=== PATIENT | female | born 1930 | race Caucasian/White ===

== ENCOUNTER 2016-02-25 13:31 | Emergency (ER) | payer MEDICARE, OTHER, MEDICAID ==
--- NOTE | 2016-02-25 14:10 | Emergency Department Record ---
History of Present Illness - General Chief Complaint: Fall Injury Stated Complaint: FALL INJURY Time Seen by Provider: 02/25/16 14:09 Source: Patient, Family, EMS Mode of Arrival: EMS Limitations: No limitations - History of Present Illness Initial Comments: The patient is here from [facility] due to being found with a minor abrasion to her R forehead. She is a dementia patient in the memory unit at [facility] and there was no witnessed fall or injury. Due to the POSSIBLE fall [facility] called EMS to take the patient to the ER. The patient denies any pain or discomfort and denies any knowledge of falling. There has not been any recent illnesses per family. She does have a hx of falling per her daughter. 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 Fall Witnessed: No Place [facility] Occ[facility] Loss of Consciousness: None Prolonged Down Time?: No Symptoms Prior to Fall: None Location: Head - Haylee Coma Scale Eye Response: (4) Open spontaneously Verbal Response: (1) No verbal response - Related Data Home Medications Medication Instructions Recorded Confirmed Last Taken Sertraline HCl [Sertraline HCl] 25 mg PO DAILY 02/25/16 02/25/16 02/25/16 Previous Rx's Medication Instructions Recorded Amoxicillin/Potassium Clav 1 tab PO BID #20 tab 02/25/16 [Augmentin 875-125 Tablet] Allergies Allergy/AdvReac Type Severity Reaction Status Date / Time No Known Drug Allergies Allergy Verified 02/25/16 14:07 Travel Screening - Travel/Exposure Within Last 30 Days Have you traveled within the last 30 days?: No - Travel/Exposure Within Last Year Have you traveled outside the [place] in the last year?: No - Additonal Travel Details Have you been exposed to anyone with a communicable illness?: No - Travel Symptoms Symptom Screening: None Review of Systems Constitutional: Denies: Chills, Fever Eyes: Denies: Eye discharge ENT: Denies: Congestion Respiratory: Denies: Cough, Dyspnea Past Medical History - SOCIAL HISTORY Smoking Status: Never smoker Alcohol Use: None Drug Use: None - RESPIRATORY Hx Respiratory Disorders: No - CARDIOVASCULAR Hx Cardio Disorders: No - NEURO Hx Neuro Disorders: No - GI Hx GI Disorders: No - Hx Genitourinary Disorders: No - ENDOCRINE Hx Endocrine Disorders: No Hx Diabetes: No Hx Thyroid Disease: No - MUSCULOSKELETAL Hx Musculoskeletal Disorders: No - PSYCH Comment:: dementia - HEMATOLOGY/ONCOLOGY Hx Hematology/Oncology Disorders: No Family Medical History Any Significant Family History?: Yes Hx Alcohol Use: Father Hx Cancer: Mother Hx Heart Disease: Brother/Sister Hx Kidney Disease: Brother/Sister Hx Liver Disease: Brother/Sister Physical Exam - General General Appearance: Alert, Cooperative, No acute distress - Head Head exam: Normocephalic. negative: Atraumatic (There is a nontender very minor abrasion to the R forehead area. It is nontender.) Head exam detail: Abrasion - Eye Eye exam: Normal appearance, PERRL - Neck Neck exam: Normal inspection, Full ROM. negative: Meningismus, Tenderness ( There is normal ROM with no pain.) - Respiratory Respiratory exam: Normal lung sounds bilaterally. negative: Respiratory distress - Cardiovascular Cardiovascular Exam: Regular rate, Normal rhythm, Normal heart sounds - GI/Abdominal GI/Abdominal exam: Soft, Normal bowel sounds. negative: Tenderness - Neurological Neurological exam: Alert, Normal gait (The patient is up walking with her normal gait per her daughter.). negative: Abnormal gait, Altered, Motor sensory deficit, Oriented X3 - Psychiatric Psychiatric exam: negative: Agitated, Anxious, Depressed Course Vital Signs 02/25/16 13:40 Temperature 97.8 F Pulse Rate [ 85 Pulse Ox Probe] Respiratory 16 Rate Blood Pressure 142/88 [Left Arm] Pulse Ox 97 - Reevaluation(s) Reevaluation #1: I did discuss the CT results with the patient's family. The patient is resting comfortably with no complaints. 02/25/16 15:08 Medical Decision Making - Data Complexity MDM Data: X-Ray Ordered and/or Reviewed - Radiology Data Radiology results: Report reviewed (Head CT: Neg for any acute changes. L max sinusitis.) Disposition Disposition: Discharge Clinical Impression: Acute sinusitis Qualifiers: Sinusitis location: maxillary Recurrence: not specified as recurrent Qualified Code(s): J01.00 - Acute maxillary sinusitis, unspecified Disposition: Home, Self-Care Condition: (1) Good Instructions: Sinusitis (ED) Additional Instructions: Please continue your regular medicines. Take the Augmentin as directed. Please see your PCP if not better in 3 days. Return to the ER if worse. Prescriptions: Amoxicillin/Potassium Clav [Augmentin 875-125 Tablet] 1 tab PO BID #20 tab Forms: Patient Portal Access Time of Disposition: 15:10
--- NOTE | 2016-02-29 10:49 | CT SCAN REPORT ---
EXAM: CT OF THE BRAIN WITHOUT CONTRAST HISTORY: POSSIBLE FALL. TECHNIQUE: CT of the brain without contrast was obtained. Comparison: None. Encounter: Initial. FINDINGS: The globes are intact. There is complete opacification of the left maxillary sinus. There is no displaced or depressed skull fracture. There is no intra or extraaxial hemorrhage. CT is limited for the evaluation of acute infarct. No CT evidence for large or territorial acute infarct. Age appropriate atrophy with small vessel ischemic change. IMPRESSION: ATROPHY. SMALL VESSEL ISCHEMIC CHANGE. LEFT MAXILLARY SINUSITIS. JOB NUMBER: [id number] MTDD
== END 2016-02-25 15:18 ==
LOC: ER 13:31
DX: S00.81XA Abrasion of other part of head, initial encounter (principal); J01.00 Acute maxillary sinusitis, unspecified; F03.90 Unspecified dementia, unspecified severity, without behavioral disturbance, psychotic disturbance, mood disturbance, and anxiety; X58.XXXA Exposure to other specified factors, initial encounter; Y92.129 Unspecified place in nursing home as the place of occurrence of the external cause
CPT/HCPCS: 70450; 99283

== ENCOUNTER 2016-06-17 12:09 | Emergency (ER) | payer MEDICARE, OTHER, MEDICAID ==
--- NOTE | 2016-06-17 12:23 | Emergency Department Record ---
History of Present Illness - General Chief Complaint: Fall Injury Stated Complaint: FALL Time Seen by Provider: 06/17/16 12:18 Source: Patient, Family, EMS Mode of Arrival: Ambulatory Limitations: No limitations - History of Present Illness Initial Comments: 86 yo female presents from [facility] after a witnessed fall. No LOC. No mental status changes. She hit the back of her head. No headache. Her daughter is present and states she is at her baseline. She has some dementia with memory issues. No new extremity pain. No other recent illness per the daughter. MD Complaint: Fall -: Minutes(s) Fall From: Standing When Fall Occurred: Just prior to arrival Fall Witnessed: Yes, by living facility staff Place Fall Occurred: alf/SNF Loss of Consciousness: None Prolonged Down Time?: No Symptoms Prior to Fall: None Location: Head Quality: Aching (very mild) Associated Symptoms: Denies - Haylee Coma Scale Eye Response: (4) Open spontaneously Motor Response: (6) Obeys commands Verbal Response: (5) Oriented Haylee Total: 15 - Related Data Home Medications Medication Instructions Recorded Confirmed Last Taken Sertraline HCl [Sertraline HCl] 25 mg PO DAILY 02/25/16 06/17/16 06/17/16 Acetaminophen [Mapap] 1 tab PO TID 06/17/16 06/17/16 06/08/16 Ergocalciferol (Vitamin D2) 50,000 unit PO WEEKLY 06/17/16 06/17/16 06/09/16 [Vitamin D2] Melatonin 5 mg PO QHS 06/17/16 06/17/16 Unknown Allergies Allergy/AdvReac Type Severity Reaction Status Date / Time No Known Drug Allergies Allergy Verified 02/25/16 14:07 Review of Systems Constitutional: Denies: Chills, Fever, Malaise, Weakness Eyes: Denies: Eye discharge, Eye pain, Photophobia, Vision change ENT: Denies: Congestion, Throat pain Respiratory: Denies: Cough, Dyspnea, Wheezes Cardiovascular: Denies: Chest pain, Palpitations, Syncope Endocrine: Denies: Fatigue Gastrointestinal: Denies: Abdominal pain, Diarrhea, Nausea, Vomiting Genitourinary: Denies: Dysuria, Frequency, Urgency Musculoskeletal: Denies: Arthralgia, Back pain, Joint swelling, Myalgia, Neck pain Skin: Denies: Bruising, Change in color Neurological: Reports: Confusion (at baseline). Denies: Headache, Numbness, Vertigo, Weakness Psychiatric: Denies: Anxiety Hematological/Lymphatic: Denies: Blood Clots, Easy bleeding, Easy bruising, Swollen glands Past Medical History - SOCIAL HISTORY Smoking Status: Never smoker Drug Use: None - RESPIRATORY Hx Respiratory Disorders: No - CARDIOVASCULAR Hx Cardio Disorders: No - NEURO Hx Neuro Disorders: No - GI Hx GI Disorders: No - Hx Genitourinary Disorders: No - ENDOCRINE Hx Endocrine Disorders: No Hx Diabetes: No Hx Thyroid Disease: No - MUSCULOSKELETAL Hx Musculoskeletal Disorders: No - PSYCH Comment:: dementia - HEMATOLOGY/ONCOLOGY Hx Hematology/Oncology Disorders: No Family Medical History Hx Alcohol Use: Father Hx Cancer: Mother Hx Heart Disease: Brother/Sister Hx Kidney Disease: Brother/Sister Hx Liver Disease: Brother/Sister Physical Exam - General General Appearance: Alert, Cooperative, No acute distress, Other (Oriented to person and hospital, at baseline) - Head Head exam: negative: Atraumatic Head exam detail: Contusion (posterior scalp mild swelling) - Eye Eye exam: Normal appearance, PERRL. negative: Conjunctival injection, Periorbital swelling - ENT ENT exam: Normal exam, Mucous membranes moist, Normal orophraynx Ear exam: Normal external inspection. negative: External canal tenderness Nasal Exam: Normal inspection. negative: Discharge, Sinus tenderness Mouth exam: Normal external inspection, Tongue normal Teeth exam: Normal inspection. negative: Dental caries Throat exam: Normal inspection. negative: Tonsillar erythema, Tonsillar exudate - Neck Neck exam: Normal inspection, Full ROM. negative: Tenderness - Respiratory Respiratory exam: Normal lung sounds bilaterally. negative: Accessory muscle use, Chest wall tenderness, Decreased breath sounds, Respiratory distress - Cardiovascular Cardiovascular Exam: Regular rate, Normal rhythm, Normal heart sounds - GI/Abdominal GI/Abdominal exam: Soft. negative: Tenderness - Rectal Rectal exam: Deferred - exam: Deferred - Extremities Extremities exam: Normal inspection, Full ROM, Normal capillary refill, Other ( Full ROM of the joints). negative: Calf tenderness, Joint swelling, Pedal edema , Tenderness - Back Back exam: Reports: Normal inspection, Full ROM. Denies: CVA tenderness (R), CVA tenderness (L), Muscle spasm, Paraspinal tenderness, Rash noted, Tenderness , Vertebral tenderness - Neurological Neurological exam: Alert, Normal gait, Oriented X3. negative: Altered - Psychiatric Psychiatric exam: Normal affect, Normal mood. negative: Agitated, Anxious - Skin Skin exam: Dry, Intact, Normal color, Warm. negative: Cyanosis, Diaphoretic, Erythema Course - Reevaluation(s) Reevaluation #1: The patient was seen and examined She is at baseline but hit the back of her head. CT ordered of head and neck 06/17/16 12:22 Reevaluation #2: No acute abnormality on the HCT or the Cervical spine CT. She has residual sinusitis UA sent. Trace LE and small amount of bacteria Given the tow above findings of sinusitis and UA she will be placed on antibiotics 06/17/16 13:25 06/17/16 13:39 06/17/16 13:42 Disposition Disposition: Discharge Clinical Impression: Head contusion Qualifiers: Encounter type: initial encounter Laterality: unspecified laterality Fall Qualifiers: Encounter type: initial encounter Qualified Code(s): W19.XXXA - Unspecified fall, initial encounter Sinusitis Qualifiers: Sinusitis location: unspecified location Chronicity: acute Recurrence: non- recurrent Qualified Code(s): J01.90 - Acute sinusitis, unspecified Urinary Tract Infection Qualifiers: Urinary tract infection type: site unspecified Hematuria presence: without hematuria Qualified Code(s): N39.0 - Urinary tract infection, site not specified Condition: (2) Stable Instructions: Fall Prevention for Older Adults (ED) Additional Instructions: Follow up with your doctor this week for a recheck Return if you have any new symptoms, pain, concerns Take the Keflex 3 times daily for one week Forms: Patient Portal Access
[2016-06-17 13:29] LABS: URINE APPEARANCE CLEAR; URINE BILIRUBIN NEGATIVE (NEGATIVE); URINE BLOOD NEGATIVE (NEGATIVE); URINE COLOR YELLOW; URINE GLUCOSE (UA) NEGATIVE (NEGATIVE); URINE KETONE NEGATIVE (NEGATIVE); URINE LEUKOCYTE ESTERASE TRACE (NEGATIVE); URINE NITRITE NEGATIVE (NEGATIVE); URINE PROTEIN NEGATIVE (NEGATIVE); URINE UROBILINOGEN 0.2 E.U./dL (0.20 - 1.00)
[2016-06-17 13:41] LABS: URINE BACTERIA FEW; URINE EPITHELIAL CELLS 0 - 2 (FEW); URINE RBC NONE SEEN (NONE SEEN); URINE WBC 0 - 2 (0-2/hpf)
[2016-06-17] MEDS: CEPHALEXIN 500 MG CAPSULE PO STA (14:11)
== END 2016-06-17 14:15 | disposition home or self-care (01) ==
LOC: ER 12:09
DX: S00.03XA Contusion of scalp, initial encounter (principal); R51 Headache; J01.90 Acute sinusitis, unspecified; N39.0 Urinary tract infection, site not specified; M79.642 Pain in left hand; F03.90 Unspecified dementia, unspecified severity, without behavioral disturbance, psychotic disturbance, mood disturbance, and anxiety; W01.198A Fall on same level from slipping, tripping and stumbling with subsequent striking against other object, initial encounter; Y92.129 Unspecified place in nursing home as the place of occurrence of the external cause
CPT/HCPCS: 70450; 72125; 81001; 99283; 99284

== ENCOUNTER 2016-10-26 08:48 | Emergency (ER) | payer MEDICARE, MEDICAID ==
--- NOTE | 2016-10-26 09:19 | Emergency Department Record ---
History of Present Illness - General Chief Complaint: Fall Injury Stated Complaint: FALL Time Seen by Provider: 10/26/16 09:00 Source: Patient, Family Mode of Arrival: EMS Limitations: No limitations - History of Present Illness Initial Comments: The patient is here due to falling at [facility] and possibly hitting her head. She fell trying to get into a chair and possibly fell backwards. The patient had no LOC and possibly hit her head. She did get up and sit back in the chair after and finish her breakfast. The patient presently denies any problems or pain. MD Complaint: Fall Onset/Timin -: Minutes(s) Fall From: Chair When Fall Occurred: Just prior to arrival Fall Witnessed: Yes, by bystander, Yes, by living facility staff Place Fall Occurred: [facility]NF Loss of Consciousness: None Prolonged Down Time?: No Symptoms Prior to Fall: None Location: Head, Neck Severity: Mild Severity scale (1-10): 2 Quality: Aching Associated Symptoms: Denies - Haylee Coma Scale Eye Response: (4) Open spontaneously Motor Response: (6) Obeys commands Verbal Response: (4) Confused conversation Schuyler Total: 14 - Related Data Allergies Allergy/AdvReac Type Severity Reaction Status Date / Time No Known Drug Allergies Allergy Verified 10/26/16 09:25 Travel Screening - Travel/Exposure Within Last 30 Days Have you traveled within the last 30 days?: No - Travel/Exposure Within Last Year Have you traveled outside the [place] in the last year?: No - Additonal Travel Details Have you been exposed to anyone with a communicable illness?: No - Travel Symptoms Symptom Screening: None Review of Systems Constitutional: Denies: Chills, Fever ENT: Denies: Congestion Respiratory: Denies: Cough Cardiovascular: Denies: Arrhythmia, Chest pain, Palpitations Past Medical History - SOCIAL HISTORY Smoking Status: Never smoker Alcohol Use: None Drug Use: None - RESPIRATORY Hx Respiratory Disorders: No - CARDIOVASCULAR Hx Cardio Disorders: No - NEURO Hx Neuro Disorders: No - GI Hx GI Disorders: No - Hx Genitourinary Disorders: No - ENDOCRINE Hx Endocrine Disorders: No Hx Diabetes: No Hx Thyroid Disease: No - MUSCULOSKELETAL Hx Musculoskeletal Disorders: No - PSYCH Comment:: dementia - HEMATOLOGY/ONCOLOGY Hx Hematology/Oncology Disorders: No Family Medical History Any Significant Family History?: Yes Hx Alcohol Use: Father Hx Cancer: Mother Hx Heart Disease: Brother/Sister Hx Kidney Disease: Brother/Sister Hx Liver Disease: Brother/Sister Physical Exam - General General Appearance: Alert, Cooperative, No acute distress - Head Head exam: Atraumatic, Normocephalic, Normal inspection (There are no signs of any trauma.) - Eye Eye exam: Normal appearance - Neck Neck exam: Normal inspection, Full ROM. negative: Tenderness - Respiratory Respiratory exam: Normal lung sounds bilaterally. negative: Respiratory distress - Cardiovascular Cardiovascular Exam: Regular rate, Normal rhythm, Normal heart sounds - GI/Abdominal GI/Abdominal exam: Soft, Normal bowel sounds. negative: Tenderness - Neurological Neurological exam: Alert, Normal gait. negative: Abnormal gait, Motor sensory deficit, Oriented X3 (The patient is oriented to name only which is normal for her due to her Dementia.) Course Vital Signs 10/26/16 08:54 Temperature 98.3 F Pulse Rate 81 Respiratory 18 Rate Blood Pressure 147/103 Pulse Ox 98 - Reevaluation(s) Reevaluation #1: The patient is doing well and is up ambulating normally. I did discuss the CT results with the patient. The head CT does demonstrate L max. sinus opacification which was present on the CT in Feb of this year. She did receive a course of Abx's for it. Since the patient is asymptomatic I do not think another course of Abx's will improved anything. The patient is to see her PCP for further evaluation. 10/26/16 10:21 10/26/16 11:06 Medical Decision Making - Data Complexity MDM Data: X-Ray Ordered and/or Reviewed - Radiology Data Radiology results: Report reviewed (Head CT: Neg intracranial abnormality. L max sinus opacified. C Spine: No acute changes.) Disposition Disposition: Discharge Clinical Impression: Fall Qualifiers: Encounter type: initial encounter Qualified Code(s): W19.XXXA - Unspecified fall, initial encounter Disposition: Home, Self-Care Condition: (1) Good Instructions: Fall Prevention for Older Adults (ED) Additional Instructions: Please continue your regular medicines. Please see your PCP next week for recheck. Return to the ER if worse. Forms: Patient Portal Access Time of Disposition: 10:23 Quality - Quality Measures Quality Measures: N/A - Blood Pressure Screening View Details: Yes Does Patient Have Any of the Following: No Blood Pressure Classification: Hypertensive Reading Systolic Measurement: 147 Diastolic Measurement: 103 Screening for High Blood Pressure: < Pre-Hypertensive BP, F/U Documented > [ [id number]] Pre-Hypertensive Follow-up Interventions: Referral to alternative/primary care provider.
--- NOTE | 2016-10-27 08:12 | CT SCAN REPORT ---
EXAM: CT SCAN HEAD WO CONTRAST HISTORY: FALL. TECHNIQUE: Sequential axial images were obtained from the foramen magnum to the vertex without contrast administration. FINDINGS: There is age-appropriate cortical atrophy. There is mild periventricular small vessel ischemia. No large territorial infarct, hemorrhage , mass effect, or midline shift. No extra-axial fluid collection. The orbits appear normal. There is complete opacification of the left maxillary sinus. The mandibular condyles are intact. No depressed skull fracture. IMPRESSION: 1. NO ACUTE INTRACRANIAL ABNORMALITY IS APPRECIATED. 2. COMPLETE OPACIFICATION OF THE LEFT MAXILLARY SINUS. 3. AGE-APPROPRIATE ATROPHY WITH PERIVENTRICULAR SMALL VESSEL ISCHEMIA. JOB NUMBER: [id number] MTDD
--- NOTE | 2016-10-27 08:14 | CT SCAN REPORT ---
EXAM: CT SCAN CERVICAL SPINE WO CONTRAST HISTORY: FALL. TECHNIQUE: Sequential axial images were obtained through the cervical spine without intravenous contrast administration. Sagittal and coronal reformatted images were performed. FINDINGS: There is mild osteopenia. There is no evidence of fracture, subluxation, or perched facet. There is mild degenerative change at C5-6. Lateral masses are well-aligned. The visualized lung apices are normal. IMPRESSION: 1. OSTEOPENIA. NO EVIDENCE OF FRACTURE, SUBLUXATION, OR PERCHED FACET. 2. MILD DEGENERATIVE CHANGE AT C5-6. JOB NUMBER: [id number] MTDD
== END 2016-10-26 10:37 | disposition home or self-care (01) ==
LOC: ER 08:48
DX: Z04.3 Encounter for examination and observation following other accident (principal); M47.892 Other spondylosis, cervical region; F03.90 Unspecified dementia, unspecified severity, without behavioral disturbance, psychotic disturbance, mood disturbance, and anxiety; W07.XXXA Fall from chair, initial encounter; Y92.10 Unspecified residential institution as the place of occurrence of the external cause
CPT/HCPCS: 70450; 72125; 99283; 99284

== ENCOUNTER 2016-10-29 08:02 | Emergency (ER) | payer MEDICARE, MEDICAID ==
--- NOTE | 2016-10-29 09:36 | Emergency Department Record ---
History of Present Illness - General Chief Complaint: Fall Injury Stated Complaint: FALL Time Seen by Provider: 10/29/16 08:17 Source: Patient, Family Mode of Arrival: Stretcher Limitations: No limitations - History of Present Illness Initial Comments: pt fell backwards hitting her head hard. this is the 3rd time she has fallen this week. she c/o head, neck pain, back pain. she had no loc and she has no numbness MD Complaint: Fall Onset/Timin -: Hour(s) Fall From: Standing When Fall Occurred: Just prior to arrival Fall Witnessed: Yes, by living facility staff Place Fall Occurred: Home Loss of Consciousness: None Prolonged Down Time?: No Symptoms Prior to Fall: None Location: Head, Neck, Back Quality: Aching Associated Symptoms: Denies - [place] Coma Scale Eye Response: (4) Open spontaneously Motor Response: (6) Obeys commands Verbal Response: (4) Confused conversation Haylee Total: 14 - Related Data Allergies Allergy/AdvReac Type Severity Reaction Status Date / Time No Known Drug Allergies Allergy Verified 10/26/16 09:25 Travel Screening - Travel/Exposure Within Last 30 Days Have you traveled within the last 30 days?: No - Travel/Exposure Within Last Year Have you traveled outside the [place] in the last year?: No - Additonal Travel Details Have you been exposed to anyone with a communicable illness?: No - Travel Symptoms Symptom Screening: None Review of Systems Reviewed: No additional complaints except as noted below Constitutional: Reports: As per HPI. Denies: Chills, Fever, Malaise, Night sweats, Weakness, Weight change Eyes: Reports: As per HPI. Denies: Eye discharge, Eye pain, Photophobia, Vision change ENT: Reports: As per HPI. Denies: Congestion, Dental pain, Ear pain, Epistaxis , Hearing loss, Throat pain Respiratory: Reports: As per HPI. Denies: Cough, Dyspnea, Hemoptysis, Stridor, Wheezes Cardiovascular: Reports: As per HPI. Denies: Arrhythmia, Chest pain, Dyspnea on exertion, Edema, Murmurs, Orthopnea, Palpitations, Paroxysmal nocturnal dyspnea, Rheumatic Fever, Syncope Endocrine: Reports: As per HPI. Denies: Fatigue, Heat or cold intolerance, Polydipsia, Polyuria Gastrointestinal: Reports: As per HPI. Denies: Abdominal pain, Constipation, Diarrhea, Hematemesis, Hematochezia, Melena, Nausea, Vomiting Genitourinary: Reports: As per HPI. Denies: Abnormal menses, Discharge, Dyspareunia, Dysuria, Frequency, Hematuria, Incontinence, Retention, Urgency Musculoskeletal: Reports: As per HPI. Denies: Arthralgia, Back pain, Gout, Joint swelling, Myalgia, Neck pain Skin: Reports: As per HPI. Denies: Bruising, Change in color, Change in hair/ nails, Lesions, Pruritus, Rash Neurological: Reports: As per HPI. Denies: Abnormal gait, Confusion, Headache, Numbness, Paresthesias, Seizure, Tingling, Tremors, Vertigo, Weakness Psychiatric: Reports: As per HPI. Denies: Anxiety, Auditory hallucinations, Depression, Homicidal thoughts, Suicidal thoughts, Visual hallucinations Hematological/Lymphatic: Reports: As per HPI. Denies: Anemia, Blood Clots, Easy bleeding, Easy bruising, Swollen glands Past Medical History - SOCIAL HISTORY Smoking Status: Never smoker Alcohol Use: None Drug Use: None - RESPIRATORY Hx Respiratory Disorders: No - CARDIOVASCULAR Hx Cardio Disorders: No - NEURO Hx Neuro Disorders: No - GI Hx GI Disorders: No - Hx Genitourinary Disorders: No - ENDOCRINE Hx Endocrine Disorders: No Hx Diabetes: No Hx Thyroid Disease: No - MUSCULOSKELETAL Hx Musculoskeletal Disorders: No - PSYCH Comment:: dementia - HEMATOLOGY/ONCOLOGY Hx Hematology/Oncology Disorders: No Family Medical History Any Significant Family History?: No Hx Alcohol Use: Father Hx Cancer: Mother Hx Heart Disease: Brother/Sister Hx Kidney Disease: Brother/Sister Hx Liver Disease: Brother/Sister Physical Exam - General General Appearance: Alert, Oriented x3, Cooperative, Mild distress - Head Head exam: Normal inspection - Eye Eye exam: Normal appearance, PERRL, EOMI Pupils: Normal accommodation - ENT ENT exam: Normal exam, Mucous membranes moist, Normal external ear exam, Normal orophraynx, TM's normal bilaterally Ear exam: Normal external inspection. negative: External canal tenderness Nasal Exam: Normal inspection. negative: Discharge, Sinus tenderness Mouth exam: Normal external inspection, Tongue normal Teeth exam: Normal inspection. negative: Dental caries Throat exam: Normal inspection. negative: Tonsillar erythema, Tonsillar exudate - Neck Neck exam: Normal inspection, Full ROM, Tenderness - Respiratory Respiratory exam: Normal lung sounds bilaterally. negative: Respiratory distress - Cardiovascular Cardiovascular Exam: Regular rate, Normal rhythm, Normal heart sounds - GI/Abdominal GI/Abdominal exam: Soft, Normal bowel sounds. negative: Tenderness - Rectal Rectal exam: Deferred - exam: Deferred - Extremities Extremities exam: Normal inspection, Full ROM, Normal capillary refill. negative: Tenderness - Back Back exam: Reports: Normal inspection, Full ROM, Tenderness. Denies: Muscle spasm, Rash noted - Neurological Neurological exam: Alert, CN II-XII intact, Normal gait, Oriented X3 - Psychiatric Psychiatric exam: Normal affect, Normal mood - Skin Skin exam: Dry, Intact, Normal color, Warm Course Vital Signs 10/29/16 10/29/16 08:08 09:26 Temperature 97.9 F Pulse Rate 64 Pulse Rate [ 66 Pulse Ox Probe] Respiratory 20 16 Rate Blood Pressure 173/107 Blood Pressure 167/93 [Left Arm] Pulse Ox 99 99 - Reevaluation(s) Reevaluation #1: 10/29/16 11:42 d/w dr max Disposition Clinical Impression: Frequent falls Lumbar compression fracture Qualifiers: Encounter type: initial encounter Lumbar vertebra fracture level: L1 Fracture type: closed Qualified Code(s): S32.010A - Wedge compression fracture of first lumbar vertebra, initial encounter for closed fracture Disposition: Halfway Facility Condition: (1) Good Instructions: Fall Prevention for Older Adults (ED), Vertebral Compression Fracture (ED) Additional Instructions: follow up with dr max. ice to sore area. tylenol for pain. return sooner if worse. Forms: Patient Portal Access Quality - Quality Measures Quality Measures: N/A - Blood Pressure Screening Does Patient Have Any of the Following: No Blood Pressure Classification: Hypertensive Reading Systolic Measurement: 173 Diastolic Measurement: 107 Screening for High Blood Pressure: < First Hypertensive BP, F/U Documented > [ [id number]] First Hypertensive Follow-up Interventions: Follow-up with rescreen GT 1 day and LT 4 weeks.
[2016-10-29] MEDS ORDERED: ACETAMINOPHEN 325 MG TAB PO ONE (11:39)
--- NOTE | 2016-10-29 15:53 | CT SCAN REPORT ---
EXAM: CT SCAN LUMBAR SPINE WO CONTRAST HISTORY: BACK PAIN POST FALL. APPARENT ACUTE L1 FRACTURE DEMONSTRATED ON SAME DAY RADIOGRAPHIC EXAMINATION. TECHNIQUE: Thin-collimation helical CT examination of the lumbar spine is performed with images obtained from the mid T12 vertebral body level through the L5-S1 level without intravenous contrast. Coronal and sagittal reformatted images are generated and reviewed. COMPARISON: Same day two-view radiographic examination of the lumbar spine. FINDINGS: There is diffuse osteopenia. There is again noted a mild acute superior endplate compression deformity of L1 primarily involving the anterior aspect. The anterior height of L1 measures 26 mm while that of L2 measures 30 mm. The posterior height of L1 measures 29 mm while that of L2 measures 31 mm. No gross retropulsion of bone is seen. No other acute fracture is identified. Minor anterior wedging of L4 is chronic in appearance. There is straightening of the normal lumbar lordosis. Multilevel degenerative disc changes are present. Disc bulging at the L3-L4 level combines with hypertrophic posterior element changes to cause borderline central canal stenosis. A right paracentral disc protrusion superimposed on disc bulging combines with ligamentum flavum buckling and hypertrophic facet degenerative changes to cause at least moderate central canal stenosis. No gross central canal stenosis is present at the L5-S1 level. Multilevel bilateral neural foraminal narrowing is present at the mid and lower levels most pronounced at L4-L5 and L5-S1 where the narrowing is moderate to severe. There is diverticulosis of the visualized sigmoid colon without evidence of diverticulitis. IMPRESSION: 1. MILD ACUTE SUPERIOR ENDPLATE COMPRESSION FRACTURE OF L1, DESCRIBED ABOVE, WITHOUT GROSS RETROPULSION OF BONE. NO OTHER FRACTURE IDENTIFIED. 2. MULTILEVEL DEGENERATIVE CHANGES, DETAILED ABOVE, WITH THOSE AT THE L4-L5 LEVEL CAUSING AT LEAST MODERATE CENTRAL CANAL STENOSIS AND THOSE AT THE L3-L4 LEVEL CAUSING BORDERLINE CENTRAL CANAL STENOSIS. 3. MULTILEVEL BILATERAL NEURAL FORAMINAL NARROWING AT THE MID AND LOWER LEVELS DUE TO LATERAL DISC BULGING, ENDPLATE SPURRING, AND FACET ARTHROPATHY. [facility]BER: [id number] [facility]
--- NOTE | 2016-10-29 16:12 | CT SCAN REPORT ---
EXAM: CT SCAN CERVICAL SPINE WO CONTRAST HISTORY: HEADACHE AND BACK PAIN. INJURY. TECHNIQUE: Thin-collimation helical CT examination of the cervical spine is performed in the axial plane without intravenous contrast. Coronal and sagittal reformatted images are generated and reviewed. COMPARISON: CT cervical spine without contrast dated 10/26/2016 at 09:45. FINDINGS: Diffuse osteopenia mildly limits evaluation. The vertebral bodies are normal in alignment and height. No acute fracture, prevertebral soft tissue swelling, nor destructive bone lesion is seen. Mild multilevel degenerative disc/endplate changes are present most pronounced at the C5-C6 and C6-C7 levels. Mild multilevel bilateral facet arthropathy is present most pronounced on the left. No new osseous cervical spinal stenosis is seen. Mild bilateral neural foraminal narrowing is again noted at the C5-C6 level due to uncovertebral joint and facet joint spurring. Complete opacification of the left maxillary sinus and a couple of anterior left ethmoid air cells is stable. There is diffuse cerebral and cerebellar atrophy with ventriculomegaly, stable. No new cervical mass nor adenopathy. There is mild atherosclerotic calcification of the carotid bifurcations, stable. The thyroid gland remains atrophic. There is a peripherally calcified nodule in the anterior right thyroid lobe measuring 6.4 mm, stable. This is nonspecific. Biapical lung scarring persists. There is emphysema in the upper lungs. Surgical hardware is present in the proximal right humerus, incompletely imaged. IMPRESSION: 1. NO ACUTE FRACTURE, SUBLUXATION, NOR PREVERTEBRAL SOFT TISSUE SWELLING. 2. MILD MULTILEVEL DEGENERATIVE CHANGES, DISCUSSED ABOVE. 3. PERIPHERALLY CALCIFIED NODULE IN THE RIGHT THYROID LOBE REDEMONSTRATED MEASURING 6.4 MM. 4. BIAPICAL LUNG SCARRING. 5. PERSISTENT OPACIFICATION OF THE LEFT MAXILLARY SINUS AND A COUPLE OF LEFT ETHMOID AIR CELLS. JOB NUMBER: [id number] [facility]
--- NOTE | 2016-10-29 16:57 | CT SCAN REPORT ---
EXAM: CT SCAN HEAD WO CONTRAST HISTORY: HEADACHE AND BACK PAIN POST FALL. TECHNIQUE: Routine noncontrast CT examination of the head. COMPARISON: CT head without contrast dated 10/26/2016. FINDINGS: Moderate dilatation of the subarachnoid spaces redemonstrated associated with mild to moderate ventriculomegaly, stable. Moderate diffuse periventricular and subcortical white matter lucencies scattered in each cerebral hemisphere. These are nonspecific but likely areas of chronic small vessel ischemia. No convincing new area of abnormally increased or decreased attenuation is noted throughout the brain substance. Benign calcification again noted in each basal ganglia. No new abnormal extra-axial fluid collection. No skull fracture visualized. Complete opacification of the left maxillary sinus is redemonstrated consistent with chronic sinusitis. Opacification of a couple of anterior left ethmoid air cells also persist. The visualized paranasal sinuses and mastoid air cells are otherwise clear. The orbits, as visualized, are unremarkable. IMPRESSION: 1. NO CT EVIDENCE OF AN ACUTE INTRACRANIAL ABNORMALITY NOR SKULL FRACTURE WITHOUT SIGNIFICANT CHANGE IN APPEARANCE OF THE BRAIN SINCE 10/26/2016. 2. MULTIPLE CHRONIC FINDINGS REDEMONSTRATED. WHITE MATTER LUCENCIES IN EACH CEREBRAL HEMISPHERE ARE CONSISTENT WITH CHRONIC SMALL VESSEL ISCHEMIA. 3. PERSISTENT OPACIFICATION OF THE LEFT MAXILLARY SINUS AND A COUPLE OF ANTERIOR LEFT ETHMOID AIR CELLS. J[facility]BER: [id number] [facility]
--- NOTE | 2016-10-29 19:13 | RADIOLOGY REPORT ---
DATE: 10/29/2016 at 0902. EXAM: THORACIC SPINE AP AND LATERAL VIEWS. HISTORY: Three falls since Saturday. Back pain. TECHNIQUE: AP and lateral views of the thoracic spine are obtained. COMPARISON: Same-day two views of the lumbar spine. FINDINGS: Diffuse osteopenia limits evaluation. There is suggestion of mild acute endplate compression deformity of L1 with stepoff of the anterior cortex superiorly. The T8 and T9 vertebral bodies appear relatively short in stature uniformly with no endplate or cortical defect as seen on the lateral view. These vertebral bodies appear intact on the frontal view. This appearance is likely chronic. The vertebral bodies are otherwise normal in alignment and height. There are degenerative endplate changes scattered within the visualized spine. IMPRESSION: 1. DIFFUSE OSTEOPENIA LIMITS EVALUATION. 2. MILD, ACUTE SUPERIOR ENDPLATE COMPRESSION DEFORMITY OF L1 SUSPECTED. 3. THE STATURE OF THE T8 AND T9 VERTEBRAL BODIES APPEARS SOMEWHAT DIMINISHED ON THE LATERAL VIEW WITHOUT CORTICAL STEPOFF, AND THESE VERTEBRAL BODIES APPEAR INTACT ON THE FRONTAL VIEW. THIS APPEARANCE IS LIKELY CHRONIC. 4. MILD DEGENERATIVE ENDPLATE CHANGES. JOB NUMBER: [id number] [facility]
--- NOTE | 2016-10-29 21:11 | RADIOLOGY REPORT ---
EXAM: LUMBAR SPINE / AP LAT HISTORY: THREE FALLS SINCE SATURDAY. BACK PAIN. TECHNIQUE: AP and lateral views of the lumbar spine. COMPARISON: Same-day radiographic examination of the thoracic spine. ENCOUNTER: Initial. FINDINGS: Diffuse osteopenia limits evaluation. There are five [id number] lumbar-type vertebrae. There is mild superior endplate compression deformity of L1 with the anterior height measuring approximately 29 mm, while the anterior height of T12 is 35 mm. there is cortical/endplate step-off anterior/superiorly. There is minimal anterior wedging of L4, though this has a chronic appearance. The vertebral bodies are otherwise normal in height. There is straightening of the normal lumbar lordosis. Mild to moderate multilevel degenerative disc/ endplate changes are present. Multilevel bilateral facet arthropathy is present , most pronounced at the lower lumbar levels. IMPRESSION: 1. DIFFUSE OSTEOPENIA LIMITS EVALUATION. 2. ACUTE MILD SUPERIOR ENDPLATE COMPRESSION DEFORMITY OF L1 WITHOUT EVIDENCE OF RETROPULSION OF BONE. 3. MILD ANTERIOR WEDGING OF L4 HAS A CHRONIC APPEARANCE. 4. MULTILEVEL DEGENERATIVE CHANGES ASSOCIATED WITH STRAIGHTENING OF THE NORMAL LUMBAR LORDOSIS. [facility]BER: [id number] [facility]
== END 2016-10-29 12:14 ==
LOC: ER 08:02
DX: S32.010A Wedge compression fracture of first lumbar vertebra, initial encounter for closed fracture (principal); R51 Headache; M54.2 Cervicalgia; M54.6 Pain in thoracic spine; W18.30XA Fall on same level, unspecified, initial encounter; Z91.81 History of falling; Y92.129 Unspecified place in nursing home as the place of occurrence of the external cause; F03.90 Unspecified dementia, unspecified severity, without behavioral disturbance, psychotic disturbance, mood disturbance, and anxiety
CPT/HCPCS: 70450; 72072; 72100; 72125; 72131; 99283; 99284

== ENCOUNTER 2016-11-04 17:55 | Emergency (ER) | payer MEDICARE, MEDICAID ==
--- NOTE | 2016-11-04 20:06 | Emergency Department Record ---
History of Present Illness - General Chief Complaint: Fall Injury Stated Complaint: FALL AND HIT HEAD Time Seen by Provider: 11/04/16 18:50 Source: Patient, Family Mode of Arrival: Stretcher Limitations: No limitations - History of Present Illness Initial Comments: pt slid out of wheelchair. it is unknown what was injured. Complaint: Fall Onset/Timin -: Hour(s) Fall From: Chair When Fall Occurred: Just prior to arrival Fall Witnessed: Yes, by living facility staff Place Fall Occurred: detention/SNF Loss of Consciousness: None Prolonged Down Time?: No Symptoms Prior to Fall: None - [place] Coma Scale Eye Response: (4) Open spontaneously Motor Response: (6) Obeys commands Verbal Response: (4) Confused conversation Haylee Total: 14 - Related Data Allergies Allergy/AdvReac Type Severity Reaction Status Date / Time No Known Drug Allergies Allergy Verified 10/26/16 09:25 Travel Screening - Travel/Exposure Within Last 30 Days Have you traveled within the last 30 days?: No - Travel/Exposure Within Last Year Have you traveled outside the [place] in the last year?: No - Additonal Travel Details Have you been exposed to anyone with a communicable illness?: No - Travel Symptoms Symptom Screening: None Review of Systems Reviewed: No additional complaints except as noted below Constitutional: Reports: As per HPI. Denies: Chills, Fever, Malaise, Night sweats, Weakness, Weight change Eyes: Reports: As per HPI. Denies: Eye discharge, Eye pain, Photophobia, Vision change ENT: Reports: As per HPI. Denies: Congestion, Dental pain, Ear pain, Epistaxis , Hearing loss, Throat pain Respiratory: Reports: As per HPI. Denies: Cough, Dyspnea, Hemoptysis, Stridor, Wheezes Cardiovascular: Reports: As per HPI. Denies: Arrhythmia, Chest pain, Dyspnea on exertion, Edema, Murmurs, Orthopnea, Palpitations, Paroxysmal nocturnal dyspnea, Rheumatic Fever, Syncope Endocrine: Reports: As per HPI. Denies: Fatigue, Heat or cold intolerance, Polydipsia, Polyuria Gastrointestinal: Reports: As per HPI. Denies: Abdominal pain, Constipation, Diarrhea, Hematemesis, Hematochezia, Melena, Nausea, Vomiting Genitourinary: Reports: As per HPI. Denies: Abnormal menses, Discharge, Dyspareunia, Dysuria, Frequency, Hematuria, Incontinence, Retention, Urgency Musculoskeletal: Reports: As per HPI. Denies: Arthralgia, Back pain, Gout, Joint swelling, Myalgia, Neck pain Skin: Reports: As per HPI. Denies: Bruising, Change in color, Change in hair/ nails, Lesions, Pruritus, Rash Neurological: Reports: As per HPI. Denies: Abnormal gait, Confusion, Headache, Numbness, Paresthesias, Seizure, Tingling, Tremors, Vertigo, Weakness Psychiatric: Reports: As per HPI. Denies: Anxiety, Auditory hallucinations, Depression, Homicidal thoughts, Suicidal thoughts, Visual hallucinations Hematological/Lymphatic: Reports: As per HPI. Denies: Anemia, Blood Clots, Easy bleeding, Easy bruising, Swollen glands Past Medical History - SOCIAL HISTORY Smoking Status: Never smoker Alcohol Use: None Drug Use: None - RESPIRATORY Hx Respiratory Disorders: No - CARDIOVASCULAR Hx Cardio Disorders: No - NEURO Hx Neuro Disorders: No - GI Hx GI Disorders: No - Hx Genitourinary Disorders: No - ENDOCRINE Hx Endocrine Disorders: No Hx Diabetes: No Hx Thyroid Disease: No - MUSCULOSKELETAL Hx Musculoskeletal Disorders: No - PSYCH Hx Psych Problems: Yes Comment:: dementia - HEMATOLOGY/ONCOLOGY Hx Hematology/Oncology Disorders: No Family Medical History Any Significant Family History?: No Hx Alcohol Use: Father Hx Cancer: Mother Hx Heart Disease: Brother/Sister Hx Kidney Disease: Brother/Sister Hx Liver Disease: Brother/Sister Physical Exam - General General Appearance: Alert, Oriented x3, Cooperative, Mild distress - Head Head exam: Normal inspection - Eye Eye exam: Normal appearance, PERRL, EOMI Pupils: Normal accommodation - ENT ENT exam: Normal exam, Mucous membranes moist, Normal external ear exam, Normal orophraynx Ear exam: Normal external inspection. negative: External canal tenderness Nasal Exam: Normal inspection. negative: Discharge, Sinus tenderness Mouth exam: Normal external inspection, Tongue normal Teeth exam: Normal inspection. negative: Dental caries Throat exam: Normal inspection. negative: Tonsillar erythema, Tonsillar exudate - Neck Neck exam: Normal inspection, Full ROM. negative: Tenderness - Respiratory Respiratory exam: Normal lung sounds bilaterally. negative: Respiratory distress - Cardiovascular Cardiovascular Exam: Regular rate, Normal rhythm, Normal heart sounds - GI/Abdominal GI/Abdominal exam: Soft, Normal bowel sounds. negative: Tenderness - Rectal Rectal exam: Deferred - exam: Deferred - Extremities Extremities exam: Normal inspection, Full ROM, Normal capillary refill, Tenderness (l hip) - Back Back exam: Reports: Normal inspection, Full ROM. Denies: Muscle spasm, Rash noted, Tenderness - Neurological Neurological exam: Alert, CN II-XII intact, Normal gait, Oriented X3 - Psychiatric Psychiatric exam: Normal affect, Normal mood - Skin Skin exam: Dry, Intact, Normal color, Warm Course Vital Signs 11/04/16 18:25 Temperature 98.5 F Pulse Rate 94 H Respiratory 20 Rate Blood Pressure 175/112 Pulse Ox 97 Disposition Disposition: Transfer Clinical Impression: Closed intertrochanteric fracture of left femur Qualifiers: Encounter type: initial encounter Fracture alignment: displaced Qualified Code( s): S72.142A - Displaced intertrochanteric fracture of left femur, initial encounter for closed fracture Closed fracture of superior pubic ramus Qualifiers: Encounter type: initial encounter Laterality: left Qualified Code(s): S32.512A - Fracture of superior rim of left pubis, initial encounter for closed fracture Inferior pubic ramus fracture Qualifiers: Encounter type: initial encounter Fracture type: closed Laterality: left Qualified Code(s): S32.592A - Other specified fracture of left pubis, initial encounter for closed fracture Disposition: Acute Care Hospital Transfer Transfer To: [facility] Reason For Transfer: fxd hip, needs ortho Accepting Physician: dr loco Time Discussed w/Accepting Physician: 20:24 Quality - Quality Measures Quality Measures: N/A - Blood Pressure Screening Does Patient Have Any of the Following: Active Dx of HTN Blood Pressure Classification: Hypertensive Reading Systolic Measurement: 175 Diastolic Measurement: 112 Screening for High Blood Pressure: Patient Exclusion, Hx of HTN [G9744]
[2016-11-04] MEDS: MORPHINE SULFATE 5 MG/ML PFS IVP ONE (20:30)
--- NOTE | 2016-11-05 13:19 | RADIOLOGY REPORT ---
EXAM: LEFT HIP, TWO VIEWS WITH AP PELVIS HISTORY: FALL. PAIN. TECHNIQUE: AP view of the pelvis and two views of the left hip were obtained. FINDINGS: Note is made of a left femoral intertrochanteric fracture. The fracture appears impacted and comminuted. Additionally there appears to be a fracture through the left inferior and superior pubic rami. IMPRESSION: 1. LEFT FEMORAL INTERTROCHANTERIC FRACTURE. 2. LEFT SIDED PUBIC RAMI FRACTURES WHICH MAY BE ACUTE OR CHRONIC. JOB [facility]BER: [id number] [facility]
--- NOTE | 2016-11-05 13:23 | CT SCAN REPORT ---
EXAM: CT OF THE CERVICAL SPINE WITHOUT CONTRAST HISTORY: FALL GETTING OUT OF WHEELCHAIR. DEMENTIA. TECHNIQUE: Routine noncontrast CT images of the cervical spine were obtained. Comparison: 10/26/16. FINDINGS: No precervical soft tissue swelling. No fracture, subluxation or significant loss of vertebral body height. There is moderate degenerative disk disease at C5-C6 and C6-C7 with lesser degenerative changes elsewhere. The visualized lung apices demonstrate a ground glass focus within the left upper lobe. Calcified nodule within the right lobe of the thyroid. IMPRESSION: 1. NO ACUTE CERVICAL SPINE ABNORMALITY. 2. DEGENERATIVE CHANGE. 3. GROUND GLASS DENSITY WITHIN THE VISUALIZED LEFT UPPER LOBE WHICH MAY RELATE TO FOCAL AIR SPACE DISEASE. THIS IS INCOMPLETELY VISUALIZED. CONSIDER FOLLOW- UP CT CHEST TO DOCUMENT RESOLUTION. 4. SMALL NONSPECIFIC THYROID NODULE WITH CALCIFICATION. JOB [facility]BER: [id number] [facility]
--- NOTE | 2016-11-05 13:39 | CT SCAN REPORT ---
EXAM: CT OF THE HEAD WITHOUT CONTRAST HISTORY: FALL GETTING OUT OF WHEELCHAIR. TECHNIQUE: Routine noncontrast CT images of the head were obtained. Comparison: 10/26/16. FINDINGS: The ventricles, basal cisterns and sulci are prominent consistent with at least moderate cerebral atrophy. There is periventricular hypoattenuation likely on account of chronic microvascular ischemia. No evidence of acute ischemia. No intracranial mass or hemorrhage. There is complete opacification of the left maxillary sinus. The paranasal sinuses and mastoid air cells are otherwise essentially clear. The orbital contents are unremarkable. IMPRESSION: 1. NO ACUTE INTRACRANIAL ABNORMALITY. 2. SENESCENT CHANGES. JOB NUMBER: [id number] [facility]
== END 2016-11-04 20:46 | disposition short-term general hospital (02) ==
LOC: ER 17:55
DX: S72.142A Displaced intertrochanteric fracture of left femur, initial encounter for closed fracture (principal); S32.592A Other specified fracture of left pubis, initial encounter for closed fracture; F03.90 Unspecified dementia, unspecified severity, without behavioral disturbance, psychotic disturbance, mood disturbance, and anxiety; W05.0XXA Fall from non-moving wheelchair, initial encounter; Y92.129 Unspecified place in nursing home as the place of occurrence of the external cause
CPT/HCPCS: 99284 ×2; 96374; 73502; 72125; 70450; J2270

== ENCOUNTER 2017-01-14 07:46 | Emergency (ER) | payer MEDICARE, MEDICAID ==
--- NOTE | 2017-01-14 07:59 | Emergency Department Record ---
History of Present Illness - General Chief Complaint: Fall Injury Stated Complaint: FALL Time Seen by Provider: 01/14/17 07:52 Source: Patient Mode of Arrival: Ambulatory Limitations: No limitations - History of Present Illness Initial Comments: 86 yo female presents by EMS. The patient has dementia. History is from EMS. By report the patient was sitting at her bedside thins morning and fell back hitter her head on a window sill. No LOC. No nausea or vomiting. She does have a laceration with controlled bleeding. No anti-coagulants. No other complaints by the patient or mentioned by EMS after their care. MD Complaint: Fall -: Minutes(s) Fall From: Other (From sitting position) When Fall Occurred: Just prior to arrival Fall Witnessed: Yes, by living facility staff Place Fall Occurred: longterm/SNF Loss of Consciousness: None Prolonged Down Time?: No Symptoms Prior to Fall: None Location: Head Quality: Other (No complaints of pain) Associated Symptoms: Denies - Haylee Coma Scale Eye Response: (4) Open spontaneously Motor Response: (6) Obeys commands Verbal Response: (5) Oriented Haylee Total: 15 - Related Data Home Medications Medication Instructions Recorded Confirmed Last Taken Amlodipine Besylate 5 mg PO DAILY 01/14/17 01/14/17 01/13/17 Aspirin 325 mg PO BID 01/14/17 01/14/17 01/13/17 Ferrous Sulfate 325 mg PO BID 01/14/17 01/14/17 01/13/17 Allergies Allergy/AdvReac Type Severity Reaction Status Date / Time No Known Drug Allergies Allergy Verified 01/14/17 07:53 Review of Systems Constitutional: Denies: Chills, Fever, Malaise, Weakness Eyes: Denies: Eye discharge, Eye pain, Vision change ENT: Denies: Congestion, Throat pain Respiratory: Denies: Cough, Dyspnea, Hemoptysis Cardiovascular: Denies: Chest pain, Syncope Endocrine: Denies: Fatigue Gastrointestinal: Denies: Abdominal pain, Diarrhea Musculoskeletal: Reports: Arthralgia (chronic arthritis per the patient). Denies: Back pain, Joint swelling, Myalgia Skin: Reports: Other (laceration). Denies: Bruising, Change in color, Rash Neurological: Denies: Headache Psychiatric: Denies: Anxiety Hematological/Lymphatic: Denies: Anemia, Easy bruising, Swollen glands Past Medical History - SOCIAL HISTORY Smoking Status: Never smoker Alcohol Use: None Drug Use: None - RESPIRATORY Hx Respiratory Disorders: No - CARDIOVASCULAR Hx Cardio Disorders: No - NEURO Hx Neuro Disorders: No - GI Hx GI Disorders: No - Hx Genitourinary Disorders: No - ENDOCRINE Hx Endocrine Disorders: No Hx Diabetes: No Hx Thyroid Disease: No - MUSCULOSKELETAL Hx Musculoskeletal Disorders: No - PSYCH Hx Psych Problems: Yes Comment:: dementia - HEMATOLOGY/ONCOLOGY Hx Hematology/Oncology Disorders: No Family Medical History Any Significant Family History?: Yes Hx Alcohol Use: Father Hx Cancer: Mother Hx Heart Disease: Brother/Sister Hx Kidney Disease: Brother/Sister Hx Liver Disease: Brother/Sister Physical Exam - General General Appearance: Alert, Cooperative, No acute distress, Other (Alert, conversational, memory is poor of prior events and current. Smiles, appears comfortable) Limitations: Other (Hx of dementia) - Head Head exam: negative: Atraumatic Head exam detail: Abrasion, Laceration Image of Face/Head: 1 - mild contusion 2 - small 3mm abrasion/laceration. No active bleeding - Eye Eye exam: Normal appearance, PERRL, EOMI. negative: Conjunctival injection, Periorbital swelling, Scleral icterus - ENT ENT exam: Normal exam, Mucous membranes moist Ear exam: Normal external inspection Nasal Exam: Normal inspection Mouth exam: Normal external inspection Teeth exam: Normal inspection - Neck Neck exam: Normal inspection, Full ROM. negative: Tenderness - Respiratory Respiratory exam: Normal lung sounds bilaterally. negative: Accessory muscle use, Chest wall tenderness, Decreased breath sounds, Prolonged expiratory, Respiratory distress, Rhonchi, Stridor, Wheezes - Cardiovascular Cardiovascular Exam: Regular rate, Normal rhythm, Normal heart sounds Peripheral Pulses: 2+: Radial (R), Radial (L) - GI/Abdominal GI/Abdominal exam: Soft. negative: Guarding, Rebound, Tenderness - Rectal Rectal exam: Deferred - exam: Deferred - Extremities Extremities exam: Normal inspection, Full ROM, Normal capillary refill. negative: Tenderness - Back Back exam: Reports: Normal inspection, Full ROM. Denies: CVA tenderness (R), CVA tenderness (L), Muscle spasm, Rash noted, Tenderness - Neurological Neurological exam: Alert, Normal gait, Reflexes normal. negative: Altered ( baseline per EMS) - Psychiatric Psychiatric exam: Normal affect, Normal mood - Skin Skin exam: Abrasion Type of lesion: Laceration Course - Reevaluation(s) Reevaluation #1: 01/14/17 09:[address] scan of the head and neck were negative for acute injury or process The C collar was removed. No neck pain The results were provided to the patient and daughter No new complaints at this time. 01/14/17 09:17 The patient was re-examined with the daughter No new symptoms or pain The scalp was thoroughly cleaned. No active bleeding. She has a 3-5mm abrasion laceration. Given no bleeding and the very small size it will not require suture/staple She is recovering from a recent hip fracture with surgery and will require transport to the nursing center Disposition Disposition: Discharge Clinical Impression: Head contusion Qualifiers: Encounter type: initial encounter Contusion of head detail: scalp Qualified Code(s): S00.03XA - Contusion of scalp, initial encounter Scalp abrasion Qualifiers: Encounter type: initial encounter Qualified Code(s): S00.01XA - Abrasion of scalp, initial encounter Disposition: Home, Self-Care Condition: (1) Good Instructions: Fall Prevention for Older Adults (ED) Additional Instructions: Return to the ED if Mrs Dao has any new symptoms or concerns. Forms: Patient Portal Access Time of Disposition: 09:21 Quality - Quality Measures Quality Measures: N/A - Blood Pressure Screening Does Patient Have Any of the Following: No Blood Pressure Classification: Hypertensive Reading Systolic Measurement: 170 Diastolic Measurement: 112 Screening for High Blood Pressure: < Pre-Hypertensive BP, F/U Documented > [ G8950] Pre-Hypertensive Follow-up Interventions: Referral to alternative/primary care provider.
--- NOTE | 2017-01-14 09:37 | CT SCAN REPORT ---
EXAM: CT OF THE CERVICAL SPINE WITHOUT CONTRAST HISTORY: FALL. TECHNIQUE: Sequential axial images were obtained through the cervical spine without intravenous contrast administration. Sagittal and coronal reformatted images were performed. FINDINGS: There is normal vertebral body height and alignment. There is osteopenia. No evidence of fracture, subluxation or perched facet. There is mild degenerative change. Evaluation of the spinal canal is limited by technique. There is minimal ground glass opacity in the lung apices. IMPRESSION: 1. NO EVIDENCE OF FRACTURE, SUBLUXATION, OR PERCHED FACET. THERE IS MILD DEGENERATIVE CHANGE. 2. THERE IS LEFT MAXILLARY SINUS DISEASE. 3. GROUND GLASS OPACITIES IN THE VISUALIZED LUNG APICES. JOB NUMBER: [id number] MTDD
--- NOTE | 2017-01-14 09:40 | CT SCAN REPORT ---
EXAM: CT OF THE BRAIN WITHOUT CONTRAST HISTORY: FALL. TECHNIQUE: Sequential axial images were obtained from the foramen magnum to the vertex without contrast administration. FINDINGS: There is age appropriate cortical atrophy. There is periventricular small vessel ischemic change. No large territorial infarct, hemorrhage, mass effect, or midline shift. There is complete opacification of the left maxillary sinus. There is opacification of the left ethmoid air cells. No depressed skull fracture. IMPRESSION: 1. AGE APPROPRIATE CORTICAL ATROPHY WITH PERIVENTRICULAR SMALL VESSEL ISCHEMIC CHANGE. 2. COMPLETE OPACIFICATION OF THE LEFT MAXILLARY SINUS. OPACIFIED LEFT ETHMOID AIR CELLS. JOB NUMBER: [id number] MTDD
== END 2017-01-14 10:02 | disposition home or self-care (01) ==
LOC: ER 07:46
DX: S00.03XA Contusion of scalp, initial encounter (principal); S00.01XA Abrasion of scalp, initial encounter; W06.XXXA Fall from bed, initial encounter; Y92.121 Bathroom in nursing home as the place of occurrence of the external cause; F03.90 Unspecified dementia, unspecified severity, without behavioral disturbance, psychotic disturbance, mood disturbance, and anxiety
CPT/HCPCS: 70450; 72125; 99283; 99284

== ENCOUNTER 2017-02-18 13:55 | Emergency (ER) | payer MEDICARE, MEDICAID ==
--- NOTE | 2017-02-18 15:02 | Emergency Department Record ---
History of Present Illness - General Chief Complaint: Fall Injury Stated Complaint: FALL HEAD INJ Time Seen by Provider: 02/18/17 14:23 Source: Patient, Family, EMS Mode of Arrival: Stretcher Limitations: Altered mental status - History of Present Illness Initial Comments: pt fell at [facility] from wheelchair hitting head and hitting r elbow. no loc MD Complaint: Fall Onset/Timin -: Hour(s) Fall From: Chair When Fall Occurred: Just prior to arrival Place Fall Occurred: Home Loss of Consciousness: None Prolonged Down Time?: No Location: Head Location - Extremities: Right: Elbow Severity scale (1-10): 1 - [place] Com[place] Scale Eye Response: (4) Open spontaneously Motor Response: (6) Obeys commands Verbal Response: (5) Oriented Haylee Total: 15 - Related Data Home Medications Medication Instructions Recorded Confirmed Last Taken Acetaminophen [Tylenol 325Mg] 325 mg PO Q6H 02/18/17 02/18/17 Unknown Melatonin 5 mg PO QHS 02/18/17 02/18/17 Unknown Allergies Allergy/AdvReac Type Severity Reaction Status Date / Time No Known Drug Allergies Allergy Verified 02/18/17 14:08 Travel Screening - Travel/Exposure Within Last 30 Days Have you traveled within the last 30 days?: No - Travel/Exposure Within Last Year Have you traveled outside the [place] in the last year?: No - Additonal Travel Details Have you been exposed to anyone with a communicable illness?: No - Travel Symptoms Symptom Screening: None Review of Systems Reviewed: No additional complaints except as noted below Constitutional: Reports: As per HPI. Denies: Chills, Fever, Malaise, Night sweats, Weakness, Weight change Eyes: Reports: As per HPI. Denies: Eye discharge, Eye pain, Photophobia, Vision change ENT: Reports: As per HPI. Denies: Congestion, Dental pain, Ear pain, Epistaxis , Hearing loss, Throat pain Respiratory: Reports: As per HPI. Denies: Cough, Dyspnea, Hemoptysis, Stridor, Wheezes Cardiovascular: Reports: As per HPI. Denies: Arrhythmia, Chest pain, Dyspnea on exertion, Edema, Murmurs, Orthopnea, Palpitations, Paroxysmal nocturnal dyspnea, Rheumatic Fever, Syncope Endocrine: Reports: As per HPI. Denies: Fatigue, Heat or cold intolerance, Polydipsia, Polyuria Gastrointestinal: Reports: As per HPI. Denies: Abdominal pain, Constipation, Diarrhea, Hematemesis, Hematochezia, Melena, Nausea, Vomiting Genitourinary: Reports: As per HPI. Denies: Abnormal menses, Discharge, Dyspareunia, Dysuria, Frequency, Hematuria, Incontinence, Retention, Urgency Musculoskeletal: Reports: As per HPI. Denies: Arthralgia, Back pain, Gout, Joint swelling, Myalgia, Neck pain Skin: Reports: As per HPI. Denies: Bruising, Change in color, Change in hair/ nails, Lesions, Pruritus, Rash Neurological: Reports: As per HPI. Denies: Abnormal gait, Confusion, Headache, Numbness, Paresthesias, Seizure, Tingling, Tremors, Vertigo, Weakness Psychiatric: Reports: As per HPI. Denies: Anxiety, Auditory hallucinations, Depression, Homicidal thoughts, Suicidal thoughts, Visual hallucinations Hematological/Lymphatic: Reports: As per HPI. Denies: Anemia, Blood Clots, Easy bleeding, Easy bruising, Swollen glands Past Medical History - SOCIAL HISTORY Smoking Status: Never smoker Alcohol Use: None Drug Use: None - RESPIRATORY Hx Respiratory Disorders: No - CARDIOVASCULAR Hx Cardio Disorders: No - NEURO Hx Neuro Disorders: Yes Hx Dementia: Yes - GI Hx GI Disorders: No - Hx Genitourinary Disorders: No - ENDOCRINE Hx Endocrine Disorders: No Hx Diabetes: No Hx Thyroid Disease: No - MUSCULOSKELETAL Hx Musculoskeletal Disorders: No - PSYCH Hx Psych Problems: Yes Hx Depression: Yes - HEMATOLOGY/ONCOLOGY Hx Hematology/Oncology Disorders: No Family Medical History Any Significant Family History?: No Hx Alcohol Use: Father Hx Cancer: Mother Hx Heart Disease: Brother/Sister Hx Kidney Disease: Brother/Sister Hx Liver Disease: Brother/Sister Physical Exam - General General Appearance: Alert, Cooperative, Mild distress - Head Head exam: Normal inspection Head exam detail: Hematoma - Eye Eye exam: Normal appearance, PERRL, EOMI Pupils: Normal accommodation - ENT ENT exam: Normal exam, Mucous membranes moist, Normal external ear exam, Normal orophraynx Ear exam: Normal external inspection. negative: External canal tenderness Nasal Exam: Normal inspection. negative: Discharge, Sinus tenderness Mouth exam: Normal external inspection, Tongue normal Teeth exam: Normal inspection. negative: Dental caries Throat exam: Normal inspection. negative: Tonsillar erythema, Tonsillar exudate - Neck Neck exam: Normal inspection, Full ROM. negative: Tenderness - Respiratory Respiratory exam: Normal lung sounds bilaterally. negative: Respiratory distress - Cardiovascular Cardiovascular Exam: Regular rate, Normal rhythm, Normal heart sounds - GI/Abdominal GI/Abdominal exam: Soft, Normal bowel sounds. negative: Tenderness - Rectal Rectal exam: Deferred - exam: Deferred - Extremities Extremities exam: Normal capillary refill, Tenderness. negative: Normal inspection, Full ROM - Back Back exam: Reports: Normal inspection, Full ROM. Denies: Muscle spasm, Rash noted, Tenderness - Neurological Neurological exam: Alert, CN II-XII intact, Normal gait, Oriented X3 - Psychiatric Psychiatric exam: Normal affect, Normal mood - Skin Skin exam: Dry, Intact, Normal color, Warm Course Vital Signs 02/18/17 13:56 Temperature 98.0 F Pulse Rate 92 H Respiratory 18 Rate Blood Pressure 129/78 Pulse Ox 96 Disposition Disposition: Discharge Clinical Impression: Lung nodule Head injury Qualifiers: Encounter type: initial encounter Qualified Code(s): S09.90XA - Unspecified injury of head, initial encounter Disposition: Home, Self-Care Condition: (1) Good Instructions: Fall Prevention for Older Adults (ED), Head Injury (ED), Pulmonary Nodules (ED) Additional Instructions: follow up with family doctor. return sooner if worse. have chest ct in 12 months to establish stability of lung nodule Forms: Patient Portal Access Quality - Quality Measures Quality Measures: N/A - Blood Pressure Screening Does Patient Have Any of the Following: No Blood Pressure Classification: Pre-Hypertensive BP Reading Systolic Measurement: 129 Diastolic Measurement: 78 Screening for High Blood Pressure: < Pre-Hypertensive BP, F/U Documented > [ G8950] Pre-Hypertensive Follow-up Interventions: Follow-up with rescreen every year.
--- NOTE | 2017-02-19 08:11 | CT SCAN REPORT ---
EXAM: CT SCAN OF THE BRAIN WITHOUT CONTRAST HISTORY: FLIPPED WHEELCHAIR BACKWARDS AND STRUCK THE HEAD ON THE WALL. TECHNIQUE: Standard CT imaging of the brain was performed in the axial plane without contrast. Additional coronal and sagittal reformatted images were also performed. Comparison: 01/14/17. Encounter: Initial. FINDINGS: There is moderate generalized atrophy. The ventricles and subarachnoid spaces are otherwise normal. Chronic small vessel ischemic changes are present within the periventricular and subcortical white matter at both cerebral hemispheres and are unchanged. There is no mass, mass effect, intracranial hemorrhage, visible acute infarct, or abnormal extraaxial fluid. The skull is intact. The orbits and mastoids are normal. There is chronic complete opacification of the left maxillary sinus which appears unchanged. IMPRESSION: 1. STABLE ATROPHY AND CHRONIC SMALL VESSEL ISCHEMIC CHANGES. 2. NO ACUTE INTRACRANIAL ABNORMALITY. 3. CHRONIC COMPLETE OPACIFICATION OF THE LEFT MAXILLARY SINUS. JOB NUMBER: [id number] MTDD
--- NOTE | 2017-02-19 08:32 | CT SCAN REPORT ---
EXAM: CT SCAN OF THE CERVICAL SPINE WITHOUT CONTRAST HISTORY: FLIPPED BACKWARDS IN WHEELCHAIR AND STRUCK HEAD ON WALL. TECHNIQUE: Standard CT imaging of the cervical spine was performed in the axial plane without contrast. Additional coronal and sagittal reformatted images were also performed. Comparison: 01/14/17. Encounter: Initial. FINDINGS: There is straightening of the cervical lordosis which appears similar to the previous study. The craniocervical and cervicothoracic junctions are normal. There is no acute fracture, subluxation, or prevertebral soft tissue swelling. Disk space narrowing and end plate degenerative changes are present from the C5 through the C7 levels. Facet arthropathy is present throughout. There is no central canal stenosis. There is moderate neural foraminal narrowing at the C5-C6 level, left greater than right. The neck soft tissues are normal. There is a 13 mm ground glass nodule within the left upper lobe on image number 154. This is not significantly different from the previous examination. A follow-up CT scan of the chest is recommended in twelve months to confirm stability. IMPRESSION: 1. NO ACUTE CERVICAL SPINE PATHOLOGY. 2. MULTILEVEL DEGENERATIVE DISK DISEASE AND FACET ARTHROPATHY. 3. STABLE 1.3 CM GROUND GLASS NODULE WITHIN THE LEFT UPPER LOBE. A FOLLOW-UP CHEST CT IS RECOMMENDED IN TWELVE MONTHS TO CONFIRM STABILITY. JOB NUMBER: [id number] MTDD
--- NOTE | 2017-02-19 08:34 | RADIOLOGY REPORT ---
EXAM: LEFT ELBOW HISTORY: LEFT ELBOW PAIN STATUS POST FALL. TECHNIQUE: Four views of the left elbow were obtained. Comparison: None. FINDINGS: The bones are osteopenic, but appear intact. There is no acute fracture or dislocation. There is no elbow effusion. IMPRESSION: NO ACUTE LEFT ELBOW PATHOLOGY. JOB NUMBER: [id number] MTDD
== END 2017-02-18 16:22 | disposition home or self-care (01) ==
LOC: ER 13:55
DX: S09.90XA Unspecified injury of head, initial encounter (principal); M25.522 Pain in left elbow; M50.30 Other cervical disc degeneration, unspecified cervical region; R91.1 Solitary pulmonary nodule; R40.4 Transient alteration of awareness; W05.0XXA Fall from non-moving wheelchair, initial encounter; Y92.120 Kitchen in nursing home as the place of occurrence of the external cause; F03.90 Unspecified dementia, unspecified severity, without behavioral disturbance, psychotic disturbance, mood disturbance, and anxiety
CPT/HCPCS: 70450; 72125; 99284

== ENCOUNTER 2017-02-25 15:54 | Emergency (ER) | payer MEDICARE, MEDICAID ==
--- NOTE | 2017-02-25 16:07 | Emergency Department Record ---
History of Present Illness - General Chief Complaint: Fall Injury Stated Complaint: FALL Time Seen by Provider: 02/25/17 15:57 Source: EMS Mode of Arrival: EMS Limitations: Altered mental status (chronic.) - History of Present Illness Initial Comments: The patient is here due to supposedly falling sideways out of her wheelchair and hitting her head on the wall. There was no reported LOC. The patient has been her normal self since. She has a hx of significant dementia and is at her baseline now. There is no hx of any recent illness, fever, chills, or pain. MD Complaint: Fall Onset/Timin -: Minutes(s) Fall From: Chair When Fall Occurred: Just prior to arrival Fall Witnessed: Yes, by living facility staff Place Fall Occurred: shelter/SNF Loss of Consciousness: None Prolonged Down Time?: No Symptoms Prior to Fall: None Context: History of frequent falls Associated Symptoms: Denies - Related Data Home Medications Medication Instructions Recorded Confirmed Last Taken Hydrocodone/Acetaminophen [[place] 1 each PO Q6H 02/25/17 02/25/17 Unknown 5-325 Tablet] Allergies Allergy/AdvReac Type Severity Reaction Status Date / Time No Known Drug Allergies Allergy Verified 02/18/17 14:08 Travel Screening - Travel/Exposure Within Last 30 Days Have you traveled within the last 30 days?: No Review of Systems Constitutional: Denies: Chills, Fever Eyes: Denies: Eye discharge ENT: Denies: Congestion Respiratory: Denies: Cough, Dyspnea Past Medical History - SOCIAL HISTORY Smoking Status: Never smoker - RESPIRATORY Hx Respiratory Disorders: No - CARDIOVASCULAR Hx Cardio Disorders: No - NEURO Hx Neuro Disorders: Yes Hx Dementia: Yes - GI Hx GI Disorders: No - Hx Genitourinary Disorders: No - ENDOCRINE Hx Endocrine Disorders: No Hx Diabetes: No Hx Thyroid Disease: No - MUSCULOSKELETAL Hx Musculoskeletal Disorders: No - PSYCH Hx Psych Problems: Yes Hx Depression: Yes - HEMATOLOGY/ONCOLOGY Hx Hematology/Oncology Disorders: No Family Medical History Any Significant Family History?: Yes Hx Alcohol Use: Father Hx Cancer: Mother Hx Heart Disease: Brother/Sister Hx Kidney Disease: Brother/Sister Hx Liver Disease: Brother/Sister Physical Exam - General General Appearance: Alert, Cooperative, No acute distress - Head Head exam: Atraumatic, Normocephalic, Normal inspection (There are no signs of any trauma, swelling, or injury.) - Eye Eye exam: Normal appearance, PERRL - Neck Neck exam: Normal inspection, Full ROM. negative: Meningismus, Tenderness ( There is no obvious tenderness.) - Respiratory Respiratory exam: Normal lung sounds bilaterally. negative: Respiratory distress - Cardiovascular Cardiovascular Exam: Regular rate, Normal rhythm, Normal heart sounds - GI/Abdominal GI/Abdominal exam: Soft, Normal bowel sounds. negative: Tenderness - Extremities Extremities exam: Normal inspection, Full ROM, Normal capillary refill. negative: Tenderness - Neurological Neurological exam: Abnormal gait (chronic.), Alert. negative: Motor sensory deficit, Normal gait, Oriented X3 Course Vital Signs 02/25/17 16:00 Temperature 97.8 F Pulse Rate 84 Respiratory 20 Rate Blood Pressure 146/101 Pulse Ox 97 - Reevaluation(s) Reevaluation #1: The patient is doing well. I did discuss the CT results with the patient's daughter and the need for F/u. 02/25/17 16:33 Medical Decision Making - Data Complexity MDM Data: X-Ray Ordered and/or Reviewed - Radiology Data Radiology results: Report reviewed (Head CT: No acute changes.) Disposition Disposition: Discharge Clinical Impression: Head injury Qualifiers: Encounter type: initial encounter Qualified Code(s): S09.90XA - Unspecified injury of head, initial encounter Disposition: Home, Self-Care Condition: (2) Stable Instructions: Fall Prevention for Older Adults (ED) Additional Instructions: Please continue your home medicines. Please see your PCP for recheck next week. Return to the ER for any problems. Forms: Patient Portal Access Time of Disposition: 16:35 Quality - Quality Measures Quality Measures: N/A - Blood Pressure Screening View Details: Yes Does Patient Have Any of the Following: No, Active Dx of HTN Blood Pressure Classification: Hypertensive Reading Systolic Measurement: 142 Diastolic Measurement: 92 Screening for High Blood Pressure: Patient Exclusion, Hx of HTN [G9744]
--- NOTE | 2017-02-26 10:57 | CT SCAN REPORT ---
EXAM: CT OF THE BRAIN WITHOUT CONTRAST HISTORY: HEAD INJURY. TECHNIQUE: Sequential axial images were obtained from the foramen magnum to the vertex without contrast administration. FINDINGS: There is age appropriate cortical atrophy. There is periventricular small vessel ischemia. No large territorial infarct, hemorrhage, mass effect, or midline shift. No extraaxial fluid collection. There is intracranial vascular calcification. There is complete opacification of the left maxillary sinus. The mastoid air cells appear normal. IMPRESSION: THERE IS AGE APPROPRIATE CORTICAL ATROPHY. THERE IS PERIVENTRICULAR SMALL VESSEL ISCHEMIA. THERE IS INTRACRANIAL VASCULAR CALCIFICATION. THERE IS COMPLETE OPACIFICATION OF THE LEFT MAXILLARY SINUS. THE MASTOID AIR CELLS APPEAR NORMAL. JOB NUMBER: [id number] MTDD
== END 2017-02-25 17:29 | disposition home or self-care (01) ==
LOC: ER 15:54
DX: S09.90XA Unspecified injury of head, initial encounter (principal); M25.511 Pain in right shoulder; F03.90 Unspecified dementia, unspecified severity, without behavioral disturbance, psychotic disturbance, mood disturbance, and anxiety; Z91.81 History of falling; W05.0XXA Fall from non-moving wheelchair, initial encounter; Y92.129 Unspecified place in nursing home as the place of occurrence of the external cause
CPT/HCPCS: 70450; 99283

== ENCOUNTER 2017-03-02 19:01 | Emergency (ER) | payer MEDICARE, MEDICAID ==
--- NOTE | 2017-03-02 19:08 | Emergency Department Record ---
History of Present Illness - General Stated Complaint: FALL INJURY Time Seen by Provider: 03/02/17 19:02 Source: EMS Mode of Arrival: EMS Limitations: Other (Dementia) - History of Present Illness Initial Comments: 86 yo female presents to ED for evaluation following a fall with injury to the right frontal scalp. Patient reports that she lost her balance resulting in the fall, denies LOC. Patient's daughter reports history of frequent falls, only takes aspirin for blood thinner medications. Patient denies other injury on examination. MD Complaint: Fall Onset/Timin -: Minutes(s) Fall From: Standing When Fall Occurred: Just prior to arrival Fall Witnessed: Yes, by living facility staff Place Fall Occurred: Home Loss of Consciousness: None Prolonged Down Time?: No Symptoms Prior to Fall: None Location: Head Severity: Mild - Haylee Coma Scale Eye Response: (4) Open spontaneously Motor Response: (6) Obeys commands Verbal Response: (5) Oriented [place] Total: 15 - Related Data Allergies Allergy/AdvReac Type Severity Reaction Status Date / Time No Known Drug Allergies Allergy Verified 02/18/17 14:08 Review of Systems Constitutional: Denies: Chills, Fever, Malaise, Night sweats Eyes: Denies: Eye discharge, Eye pain ENT: Denies: Congestion, Dental pain Respiratory: Denies: Cough, Dyspnea Cardiovascular: Denies: Chest pain, Dyspnea on exertion Endocrine: Denies: Fatigue, Heat or cold intolerance Gastrointestinal: Denies: Abdominal pain, Vomiting Genitourinary: Denies: Incontinence, Retention Musculoskeletal: Denies: Arthralgia, Back pain, Gout Skin: Reports: Bruising (right forehead). Denies: Change in color Neurological: Denies: Confusion, Seizure Psychiatric: Denies: Anxiety Hematological/Lymphatic: Denies: Anemia, Blood Clots Past Medical History - SOCIAL HISTORY Smoking Status: Never smoker - RESPIRATORY Hx Respiratory Disorders: No - CARDIOVASCULAR Hx Cardio Disorders: No - NEURO Hx Neuro Disorders: Yes Hx Dementia: Yes - GI Hx GI Disorders: No - Hx Genitourinary Disorders: No - ENDOCRINE Hx Endocrine Disorders: No Hx Diabetes: No Hx Thyroid Disease: No - MUSCULOSKELETAL Hx Musculoskeletal Disorders: No - PSYCH Hx Psych Problems: Yes Hx Depression: Yes - HEMATOLOGY/ONCOLOGY Hx Hematology/Oncology Disorders: No Family Medical History Hx Alcohol Use: Father Hx Cancer: Mother Hx Heart Disease: Brother/Sister Hx Kidney Disease: Brother/Sister Hx Liver Disease: Brother/Sister Physical Exam - General General Appearance: Alert, Cooperative Limitations: No limitations - Head Head exam: Normocephalic, Normal inspection, Other (STS to the right forehead) Head exam detail: negative: Abrasion, Contusion, Mcfarlane's sign, General tenderness, Hematoma, Laceration - Eye Eye exam: Normal appearance. negative: Conjunctival injection, Periorbital swelling, Periorbital tenderness, Scleral icterus - ENT Ear exam: negative: Auricular hematoma, Auricular trauma Nasal Exam: negative: Active bleeding, Discharge, Dried blood, Foreign body Mouth exam: negative: Drooling, Laceration, Tongue elevation - Neck Neck exam: Normal inspection. negative: Meningismus, Tenderness - Respiratory Respiratory exam: Normal lung sounds bilaterally. negative: Rales, Respiratory distress, Rhonchi, Stridor - Cardiovascular Cardiovascular Exam: Regular rate, Normal rhythm, Normal heart sounds - GI/Abdominal GI/Abdominal exam: Soft. negative: Rebound, Rigid, Tenderness - Rectal Rectal exam: Deferred - exam: Deferred - Extremities Extremities exam: Normal inspection, Full ROM. negative: Pedal edema, Tenderness - Back Back exam: Denies: CVA tenderness (R), CVA tenderness (L) - Neurological Neurological exam: Alert, Oriented X3 - Psychiatric Psychiatric exam: Normal affect, Normal mood - Skin Skin exam: Normal color. negative: Abrasion Type of lesion: negative: abrasion Course - Reevaluation(s) Reevaluation #1: 03/02/17 20:21 CT Brain: Degenerative changes, nothing acute CT Cervical Spine: Mild degenerative changes, no acute fracture or subluxation Cervical collar was removed, patient has good [id number]-[id number] ROM of the neck without pain, and appears stable for discharge back to [facility] at this time. Disposition Disposition: Discharge Clinical Impression: Head injury Qualifiers: Encounter type: initial encounter Qualified Code(s): S09.90XA - Unspecified injury of head, initial encounter Disposition: Home, Self-Care Condition: (2) Stable Instructions: Fall Prevention for Older Adults (ED) Additional Instructions: Return to ED if your symptoms worsen or if you have any concerns. Follow-up with your family doctor in 3-5 days as directed. Time of Disposition: 20:22 Quality - Quality Measures Quality Measures: N/A - Blood Pressure Screening Does Patient Have Any of the Following: Active Dx of HTN Blood Pressure Classification: Hypertensive Reading Systolic Measurement: 167 Diastolic Measurement: 98 Screening for High Blood Pressure: Patient Exclusion, Hx of HTN [G9744]
--- NOTE | 2017-03-03 20:38 | CT SCAN REPORT ---
EXAM: CT SCAN CERVICAL SPINE WO CONTRAST HISTORY: FALL. TECHNIQUE: Sequential axial images were obtained through the cervical spine without intravenous contrast administration. Sagittal and coronal reformatted images were performed. FINDINGS: There is mild multilevel degenerative change. No evidence of fracture , subluxation, or perched facet. IMPRESSION: MILD MULTILEVEL DEGENERATIVE CHANGE. NO EVIDENCE OF FRACTURE, SUBLUXATION, OR PERCHED FACET. JOB NUMBER: [id number] MTDD
--- NOTE | 2017-03-03 20:42 | CT SCAN REPORT ---
EXAM: CT SCAN HEAD WO CONTRAST HISTORY: FALL. TECHNIQUE: Sequential axial images were obtained from the foramen magnum through the vertex without contrast administration. FINDINGS: There is age-appropriate cortical atrophy. There is periventricular small vessel ischemia. No large or territorial infarct, hemorrhage, mass effect , or midline shift. There is complete opacification of the left maxillary sinus. Mastoid air cells appear normal. No depressed skull fracture. IMPRESSION: 1. AGE-APPROPRIATE CORTICAL ATROPHY. PERIVENTRICULAR SMALL VESSEL ISCHEMIA. 2. COMPLETE OPACIFICATION OF THE LEFT MAXILLARY SINUS. JOB NUMBER: [id number] [facility]
== END 2017-03-02 20:45 | disposition home or self-care (01) ==
LOC: ER 19:01
DX: S00.03XA Contusion of scalp, initial encounter (principal); M50.30 Other cervical disc degeneration, unspecified cervical region; F03.90 Unspecified dementia, unspecified severity, without behavioral disturbance, psychotic disturbance, mood disturbance, and anxiety; W19.XXXA Unspecified fall, initial encounter; Z91.81 History of falling; Y92.099 Unspecified place in other non-institutional residence as the place of occurrence of the external cause
CPT/HCPCS: 70450; 72125; 99283; 99284

== ENCOUNTER 2017-03-19 14:51 | Emergency (ER) | payer MEDICARE, MEDICAID ==
--- NOTE | 2017-03-19 17:12 | Emergency Department Record ---
History of Present Illness - General Chief Complaint: Fall Injury Stated Complaint: FALL INJURY Time Seen by Provider: 03/19/17 15:41 Source: Patient Mode of Arrival: EMS Limitations: No limitations - History of Present Illness Initial Comments: pt fell at care facility. she hit her head and she c/o r hip pain. Complaint: Fall Onset/Timin -: Hour(s) Fall From: Standing When Fall Occurred: 1-3 hours [employer] Fall Witnessed: No Place Fall Occurred: [facility] Loss of Consciousness: None Prolonged Down Time?: No Symptoms Prior to Fall: None Location: Head Location - Extremities: Right: Thigh Severity: Mild Severity scale (1-10): 1 Quality: Aching Context: History of frequent falls - Haylee Coma Scale Eye Response: (4) Open spontaneously Motor Response: (6) Obeys commands Verbal Response: (5) Oriented [place] Total: 15 - Related Data Allergies Allergy/AdvReac Type Severity Reaction Status Date / Time Sulfa (Sulfonamide Allergy HIVES Verified 03/19/17 15:06 Antibiotics) Travel Screening - Travel/Exposure Within Last 30 Days Have you traveled within the last 30 days?: No - Travel/Exposure Within Last Year Have you traveled outside the [place] in the last year?: No - Additonal Travel Details Have you been exposed to anyone with a communicable illness?: No - Travel Symptoms Symptom Screening: None Review of Systems Reviewed: No additional complaints except as noted below Constitutional: Reports: As per HPI. Denies: Chills, Fever, Malaise, Night sweats, Weakness, Weight change Eyes: Reports: As per HPI. Denies: Eye discharge, Eye pain, Photophobia, Vision change ENT: Reports: As per HPI. Denies: Congestion, Dental pain, Ear pain, Epistaxis , Hearing loss, Throat pain Respiratory: Reports: As per HPI. Denies: Cough, Dyspnea, Hemoptysis, Stridor, Wheezes Cardiovascular: Reports: As per HPI. Denies: Arrhythmia, Chest pain, Dyspnea on exertion, Edema, Murmurs, Orthopnea, Palpitations, Paroxysmal nocturnal dyspnea, Rheumatic Fever, Syncope Endocrine: Reports: As per HPI. Denies: Fatigue, Heat or cold intolerance, Polydipsia, Polyuria Gastrointestinal: Reports: As per HPI. Denies: Abdominal pain, Constipation, Diarrhea, Hematemesis, Hematochezia, Melena, Nausea, Vomiting Genitourinary: Reports: As per HPI. Denies: Abnormal menses, Discharge, Dyspareunia, Dysuria, Frequency, Hematuria, Incontinence, Retention, Urgency Musculoskeletal: Reports: As per HPI. Denies: Arthralgia, Back pain, Gout, Joint swelling, Myalgia, Neck pain Skin: Reports: As per HPI. Denies: Bruising, Change in color, Change in hair/ nails, Lesions, Pruritus, Rash Neurological: Reports: As per HPI, Headache. Denies: Abnormal gait, Confusion, Numbness, Paresthesias, Seizure, Tingling, Tremors, Vertigo, Weakness Psychiatric: Reports: As per HPI. Denies: Anxiety, Auditory hallucinations, Depression, Homicidal thoughts, Suicidal thoughts, Visual hallucinations Hematological/Lymphatic: Reports: As per HPI. Denies: Anemia, Blood Clots, Easy bleeding, Easy bruising, Swollen glands Past Medical History - SOCIAL HISTORY Smoking Status: Never smoker - RESPIRATORY Hx Respiratory Disorders: No - CARDIOVASCULAR Hx Cardio Disorders: No - NEURO Hx Neuro Disorders: Yes Hx Dementia: Yes - GI Hx GI Disorders: No - Hx Genitourinary Disorders: No - ENDOCRINE Hx Endocrine Disorders: No Hx Diabetes: No Hx Thyroid Disease: No - MUSCULOSKELETAL Hx Musculoskeletal Disorders: No - PSYCH Hx Psych Problems: Yes Hx Depression: Yes - HEMATOLOGY/ONCOLOGY Hx Hematology/Oncology Disorders: No Family Medical History Any Significant Family History?: Yes Hx Alcohol Use: Father Hx Cancer: Mother Hx Heart Disease: Brother/Sister Hx Kidney Disease: Brother/Sister Hx Liver Disease: Brother/Sister Physical Exam - General General Appearance: Alert, Cooperative, Mild distress - Head Head exam: Normal inspection - Eye Eye exam: Normal appearance, PERRL, EOMI Pupils: Normal accommodation - ENT ENT exam: Normal exam, Mucous membranes moist, Normal external ear exam, Normal orophraynx Ear exam: Normal external inspection. negative: External canal tenderness Nasal Exam: Normal inspection. negative: Discharge, Sinus tenderness Mouth exam: Normal external inspection, Tongue normal Teeth exam: Normal inspection. negative: Dental caries Throat exam: Normal inspection. negative: Tonsillar erythema, Tonsillar exudate - Neck Neck exam: Normal inspection, Full ROM. negative: Tenderness - Respiratory Respiratory exam: Normal lung sounds bilaterally. negative: Respiratory distress - Cardiovascular Cardiovascular Exam: Regular rate, Normal rhythm, Normal heart sounds - GI/Abdominal GI/Abdominal exam: Soft, Normal bowel sounds. negative: Tenderness - Rectal Rectal exam: Deferred - exam: Deferred - Extremities Extremities exam: Normal inspection, Full ROM, Normal capillary refill, Tenderness (over r foot, leg shortened and angulated) - Back Back exam: Reports: Normal inspection, Full ROM. Denies: Muscle spasm, Rash noted, Tenderness - Neurological Neurological exam: Alert, CN II-XII intact, Normal gait - Psychiatric Psychiatric exam: Normal affect, Normal mood - Skin Skin exam: Dry, Intact, Normal color, Warm Course Vital Signs 03/19/17 14:54 Temperature 97.8 F Pulse Rate 92 H Respiratory 20 Rate Blood Pressure 168/101 Pulse Ox 95 - Reevaluation(s) Reevaluation #1: 03/19/17 18:38 d/w dr domingo who accepted the pt but wants her sent to the ED Disposition Disposition: Transfer Clinical Impression: Hip fracture Qualifiers: Encounter type: initial encounter Fracture type: closed Laterality: right Qualified Code(s): S72.001A - Fracture of unspecified part of neck of right femur, initial encounter for closed fracture Disposition: Acute Care Hospital Transfer Transfer To: [facility] Reason For Transfer: fx hip Accepting Physician: dr domingo Time Discussed w/Accepting Physician: 18:37 Forms: Patient Portal Access Quality - Quality Measures Quality Measures: N/A - Blood Pressure Screening Does Patient Have Any of the Following: No Blood Pressure Classification: Hypertensive Reading Systolic Measurement: 168 Diastolic Measurement: 101 Screening for High Blood Pressure: < First Hypertensive BP, F/U Documented > [ G8950] First Hypertensive Follow-up Interventions: Follow-up with rescreen GT 1 day and LT 4 weeks.
[2017-03-19] MEDS ORDERED: PROMETHAZINE HCL 6.25 MG in 0.9 % SODIUM CHLORIDE 100ML 100 ML IVPB ONE (17:37)
[2017-03-19] MEDS ORDERED: MORPHINE SULFATE 5 MG/ML PFS IVP ONE (17:37)
--- NOTE | 2017-03-20 13:23 | RADIOLOGY REPORT ---
EXAM: RIGHT HIP WITH AP PELVIS HISTORY: PATIENT FELL TODAY. TECHNIQUE: AP view of the pelvis and AP and lateral views of the right hip were obtained. Comparison: No prior right hip series, but comparison is made with the left hip series of 11/04/16. Encounter: Initial. FINDINGS: Since the prior exam there is now seen to be a right femoral neck fracture which is probably subcapital or transcervical in location. Mild superior displacement of the femoral shaft relative to the femoral head fracture fragment. No dislocation of the right femoral head evident. Diffuse osteopenia consistent with osteoporosis. Also since the prior study, the previously seen intertrochanteric fracture of the left proximal femur has been treated with an orthopedic intramedullary boris and compression screw. There is probably a somewhat displaced lesser trochanter fracture fragment medially and a greater trochanter fracture fragment medially as well on the left. These are presumably chronic as seen today although demonstrate greater displacement than was apparent on the prior study. Apparent old fracture deformity of the left superior and inferior pubic rami also again seen, present previously. IMPRESSION: 1. ACUTE RIGHT FEMORAL NECK FRACTURE DESCRIBED ABOVE. NO DISLOCATION OF THE RIGHT FEMORAL HEAD EVIDENT. 2. POSTOP INTRAMEDULLARY BORIS AND COMPRESSION SCREW FIXATION OF THE INTERTROCHANTERIC LEFT FEMORAL NECK FRACTURE WITH DISPLACED GREATER AND LESSER TROCHANTER FRACTURE FRAGMENTS. 3. OSTEOPOROSIS. 4. OLD LEFT SUPERIOR AND INFERIOR PUBIC RAMI FRACTURES. JOB NUMBER: [id number] MTDD
--- NOTE | 2017-03-20 13:49 | CT SCAN REPORT ---
EXAM: EMERGENCY HEAD CT HISTORY: PATIENT FELL TODAY. DEMENTIA. TECHNIQUE: Axial CT scan of the head was performed without IV contrast. A preliminary report was provided by [facility]. Comparison: Head CT 03/02/17. Encounter: Initial. FINDINGS: No definite acute intracranial hemorrhage identified. No focal mass effect or midline shift apparent. Moderate generalized atrophy with chronic appearing deep white matter changes as before, nonspecific, but likely representing some chronic small vessel deep white matter ischemic disease. No definite acute infarct or intracranial mass lesion is seen. There is complete opacification of the left maxillary sinus again evident. Air fluid level now seen in the left frontal sinus, a new finding. Moderate opacification in the left ethmoid sinus particularly anteriorly has progressed as well. IMPRESSION: 1. GENERALIZED ATROPHY WITH CHRONIC APPEARING DEEP WHITE MATTER CHANGES BEFORE. 2. NO DEFINITE ACUTE INTRACRANIAL HEMORRHAGE OR FOCAL MASS EFFECT EVIDENT. 3. COMPLETE OPACIFICATION OF THE LEFT MAXILLARY SINUS BEFORE. PROGRESSIVE MEMBRANE THICKENING IN THE ETHMOID SINUS AND A NEW AIR FLUID LEVEL IN THE LEFT FRONTAL SINUS COMPARED WITH THE PRIOR STUDY. JOB NUMBER: [id number] [facility]
--- NOTE | 2017-03-20 13:56 | CT SCAN REPORT ---
EXAM: EMERGENCY CERVICAL SPINE CT HISTORY: DEMENTIA, PATIENT FELL. TECHNIQUE: Axial CT scan of the entire cervical spine was performed without IV contrast. A preliminary report was provided by [facility]. Comparison: Prior cervical spine CT dated 03/02/17. No reformatted images provided with that prior study. Encounter: Initial. FINDINGS: Small air fluid level in the sphenoid sinus. Complete opacification of the left maxillary sinus. Moderate opacification anteriorly in the left ethmoid sinus and an air fluid level partially seen in the left frontal sinus. 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 There is probably cerumen in the left external auditory canal. There is a cervical curve convexed to the right which may be due positioning or spasm. No definite fracture of the cervical spine identified. No prevertebral soft tissue swelling is identified. There is narrowing of the fifth and sixth cervical interspaces with associated hypertrophic spurring. Degenerative change at the odontoid-anterior arch of C1 articulation as well. Partially calcified nodule right lobe of the thyroid also present previously. IMPRESSION: 1. NO DEFINITE FRACTURE OR PREVERTEBRAL SOFT TISSUE SWELLING SEEN IN THE CERVICAL SPINE. 2. MULTILEVEL DEGENERATIVE CHANGE IN THE CERVICAL SPINE. 3. COMPLETE OPACIFICATION OF THE LEFT MAXILLARY SINUS. MODERATE OPACIFICATION OF THE LEFT ETHMOID SINUS ANTERIORLY. AIR FLUID LEVELS IN THE LEFT FRONTAL SINUS AND SPHENOID SINUS. 4. PARTIALLY PERIPHERALLY CALCIFIED RIGHT LOBE OF THYROID NODULE BEFORE. JOB NUMBER: [id number] MTDD
== END 2017-03-19 19:05 | disposition short-term general hospital (02) ==
LOC: ER 14:51
DX: S72.001A Fracture of unspecified part of neck of right femur, initial encounter for closed fracture (principal); M54.2 Cervicalgia; R51 Headache; F03.90 Unspecified dementia, unspecified severity, without behavioral disturbance, psychotic disturbance, mood disturbance, and anxiety; W19.XXXA Unspecified fall, initial encounter; Y92.129 Unspecified place in nursing home as the place of occurrence of the external cause; Z91.81 History of falling
CPT/HCPCS: 99285 ×2; 96374; 73502; 72125; 70450; J2270